=== PATIENT | male | born 1955 | race Caucasian/White ===

== ENCOUNTER 2016-11-14 19:23 | Emergency (ER) | payer SELFPAY ==
[~2016-11-14] VITALS: Ht 185.4 cm; Wt 122.2 kg
[2016-11-14] MEDS ORDERED: SODIUM CHLORIDE FLUSH 10ML SYR IVF ONE (20:00)
[2016-11-14] MEDS ORDERED: PLEASE ENTER ALLERGIES MC SCH ×2 (20:00)
[2016-11-14] MEDS ORDERED: MORPHINE SULFATE 4 MG/ML, 1ML IVPush PRN (20:00)
[2016-11-14] MEDS ORDERED: MORPHINE SULFATE 4 MG/ML, 1ML ONE (20:03)
[2016-11-14 20:36] LABS: BLOOD UREA NITROGEN 11 mg/dL (7-18)
[2016-11-14 20:37] LABS: ASPARTATE AMINO TRANSFERASE 41 U/L (15-37)
[2016-11-14 20:43] LABS: IS PT STATUS REG ER OR PRE ER? YES
[2016-11-14 22:50] VITALS: BP 117/67
[2016-11-14] MEDS ORDERED: ACETAMINOPHEN 650 MG SUPP PR ONE (23:00)
[2016-11-14] MEDS ORDERED: ONDANSETRON 2MG/ML, 2ML IVPush ONE (23:00)
== END 2016-11-14 23:22 | disposition home or self-care (01) ==
LOC: ED 23:07
DX: L03.115 Cellulitis of right lower limb (principal); I87.2 Venous insufficiency (chronic) (peripheral); F11.10 Opioid abuse, uncomplicated; G89.4 Chronic pain syndrome
CPT/HCPCS: 36415; 71010; 80053; 83880; 84484; 85025; 85610; 85730; 93005; 93970; 96374